=== PATIENT | male | born 1990 | race Caucasian/White ===

== ENCOUNTER → 2022-03-02 | Day surgery (SDC) | payer BC ==
[~2022-03-02] MED LIST: IBUPROFEN600 MG PO
== END | disposition home or self-care (01) ==
LOC: OR 06:43
DX: K62.5 Hemorrhage of anus and rectum (principal); R10.9 Unspecified abdominal pain; R19.7 Diarrhea, unspecified; K64.0 First degree hemorrhoids; K64.1 Second degree hemorrhoids; E66.8 Other obesity; Z68.32 Body mass index [BMI] 32.0-32.9, adult
CPT/HCPCS: J2704; J3010; J7040